=== PATIENT | female | born 1990 | race Hispanic/Latino ===

== ENCOUNTER 2017-10-03 14:36 | Outpatient (CLI) | payer OTHER ==
[~2017-10-03 14:36] MED LIST: Gadobenate Dimeglumine 529 MG/1 ML (20ML VIAL) ONE
--- NOTE | 2017-10-03 16:07 | MRI ---
BRAIN MRI WITH AND WITHOUT CONTRAST: HISTORY: Migraine with aura. Headache. FINDINGS: There is a focal signal abnormality of the right centrum semiovale, just cephalad to the body of the right lateral ventricle which demonstrates decreased T1 and increased T2/FLAIR signal. There is no i nternal, discernible enhancement. Adjacent punctate and linear enhancement indicates traversing vasc ulature. The ventricular system is normal in size. There is no midline shift or acute territorial i nfarction. Skull base flow voids are maintained. No hemorrhagic susceptibility is seen, intracrania lly. IMPRESSION: Nonspecific, nonenhancing signal abnormality of the right centrum semiovale. Primary differential co nsiderations include low-grade neoplasm versus a focal area of gliosis. Recommend continued imaging followup. Initial followup scan at 4-6 months is recommended, unless neurologic evaluation warrants more urgent imaging followup. Correlation with prior imaging, if available, would be beneficial, as well. POS: [facility]
== END 2017-10-03 14:37 | disposition home or self-care (01) ==
LOC: SCSMRI 14:36
PROVIDERS: ATTEND Psychiatry & Neurology Neurology
DX: G43.109 Migraine with aura, not intractable, without status migrainosus (principal)
CPT/HCPCS: 70553; A9579